=== PATIENT | female | born 1975 | race Caucasian/White ===

== ENCOUNTER → 2024-12-25 06:53 | Outpatient (REF) | payer BC, SELFPAY | LOC: WDC 06:53 | PROVIDERS: ATTENDING PHYSICIAN Physician Assistant | DX: Z12.31 Encounter for screening mammogram for malignant neoplasm of breast (principal) | CPT/HCPCS: 77063; 77067 ==

== ENCOUNTER → 2025-01-14 19:34 | Outpatient (REF) | payer BC, SELFPAY | LOC: MRI 3T 19:34 | PROVIDERS: ATTENDING PHYSICIAN Nurse Practitioner Adult Health; FAMILY PHYSICIAN Physician Assistant | DX: R92.2 Inconclusive mammogram (principal); Z80.3 Family history of malignant neoplasm of breast | CPT/HCPCS: 77049; A9585 ==

== ENCOUNTER → 2025-01-23 14:22 | Outpatient (REF) | payer BC, SELFPAY | LOC: WDC 14:22 | PROVIDERS: ATTENDING PHYSICIAN Nurse Practitioner Adult Health; FAMILY PHYSICIAN Physician Assistant | DX: R92.8 Other abnormal and inconclusive findings on diagnostic imaging of breast (principal); Z80.3 Family history of malignant neoplasm of breast | CPT/HCPCS: 76642 ==